=== PATIENT | female | born 1975 | race African-American/Black ===

== ENCOUNTER 2020-07-24 02:39 | Emergency (ER) | payer OTHER ==
[~2020-07-24] VITALS: Ht 162.6 cm; Wt 54.4 kg
[2020-07-24] MEDS ORDERED: LAC-HYDRIN FIV226 GM TOP (03:45)
[2020-07-24] MEDS ORDERED: BETAMETHASONE TOP (03:46)
[2020-07-24] MEDS ORDERED: CYCLOBENZAPRINE10 MG PO (03:47)
[2020-07-24] MEDS ORDERED: BUPROPION HCL150 MG PO (03:47)
[2020-07-24] MEDS ORDERED: CLONAZEPAM 0.50.5 M1 PO (03:48)
[2020-07-24] MEDS ORDERED: DEXAMETHASONE IM (03:49)
[2020-07-24] MEDS ORDERED: NEURONTIN300 MG PO (03:50)
[2020-07-24] MEDS ORDERED: HYDROCORTISONE5 MG PO (03:52)
[2020-07-24] MEDS ORDERED: HYDROCORTISONE PO (03:54)
[2020-07-24] MEDS ORDERED: DILAUDID2 MG PO (03:55)
[2020-07-24] MEDS ORDERED: HYDREA 500 MG500 M1 PO (03:56)
[2020-07-24] MEDS ORDERED: AMITIZA 24 MCG24 MCG PO (03:56)
[2020-07-24] MEDS ORDERED: MS CONTIN200 MG PO (03:57)
[2020-07-24] MEDS ORDERED: METFORMIN HCL500 M3 PO (03:57)
[2020-07-24] MEDS ORDERED: OXYCODONE PO (03:58)
[2020-07-24] MEDS ORDERED: OXYGEN NASAL (04:00)
[2020-07-24] MEDS ORDERED: RISPERDAL 1 MG T1 MG PO (04:01)
[2020-07-24] MEDS ORDERED: [UNRECOGNIZED DRUG - OTHER] TOP (04:01)
[2020-07-24] MEDS ORDERED: TRAZODONE HCL100 MG PO (04:02)
[2020-07-24] MEDS ORDERED: VENLAFAXINE HC150 MG PO (04:03)
[2020-07-24] MEDS ORDERED: TRIAMCINOLONE A80 G2 TOP (04:03)
[2020-07-24] MEDS ORDERED: ACETYL L-CARNI500 MG PO (04:06)
[2020-07-24] MEDS ORDERED: VITAMIN B-6250 MG PO (04:07)
[2020-07-24 04:57] VITALS: BP 114/63
== END 2020-07-24 04:50 | disposition home or self-care (01) ==
LOC: ER 02:39
DX: T40.2X1A Poisoning by other opioids, accidental (unintentional), initial encounter (principal); F11.23 Opioid dependence with withdrawal; Z79.899 Other long term (current) drug therapy; Z88.1 Allergy status to other antibiotic agents; Z88.8 Allergy status to other drugs, medicaments and biological substances; Y92.89 Other specified places as the place of occurrence of the external cause